=== PATIENT | female | born 1980 | race Caucasian/White ===

== ENCOUNTER 2019-03-05 01:18 | Emergency (ER) | payer BC ==
[2019-03-05 01:26] VITALS: BP 143/76
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
== END 2019-03-05 01:41 | disposition home or self-care (01) ==
LOC: MW.ED 01:18
DX: S70.02XA Contusion of left hip, initial encounter (principal); K21.9 Gastro-esophageal reflux disease without esophagitis; F41.9 Anxiety disorder, unspecified; F32.9 Major depressive disorder, single episode, unspecified; Z79.899 Other long term (current) drug therapy; V03.99XA Pedestrian with other conveyance injured in collision with car, pick-up truck or van, unspecified whether traffic or nontraffic accident, initial encounter
CPT/HCPCS: 99283; G0390

== ENCOUNTER 2022-03-28 09:01 | Emergency (ER) | payer BC ==
[2022-03-28] MEDS ORDERED: Lidocaine 5% 700 MG Patch TRDERM ONE (09:27)
[2022-03-28] MEDS ORDERED: fentaNYL 50 MCG/ML SDV IM ONE (09:27)
[2022-03-28] MEDS ORDERED: Ketorolac 60 MG/2 ML SDV IM ONE (09:27)
[2022-03-28] MEDS ORDERED: Ondansetron 4 MG Tab.DIS PO ONE (09:28)
[2022-03-28 11:11] VITALS: BP 125/81; PULSE 79
== END 2022-03-28 11:09 | disposition home or self-care (01) ==
LOC: MW.ED 09:01
DX: M25.551 Pain in right hip (principal); E66.9 Obesity, unspecified; Z68.37 Body mass index [BMI] 37.0-37.9, adult; Z86.16 Personal history of COVID-19; Z90.49 Acquired absence of other specified parts of digestive tract; Z79.899 Other long term (current) drug therapy
CPT/HCPCS: 73502; 96372; 99283; A9270; J1885; J3010